=== PATIENT | male | born 1995 | race Caucasian/White ===

== ENCOUNTER 2017-10-22 11:52 | Emergency (ER) | payer BC ==
[2017-10-22 16:08] VITALS: BP 134/84
--- NOTE | 2017-10-22 16:28 | UC ---
FLU HPI - HPI Summary HPI Summary: started yesterday with fevers, headache, sorethroat, cough and body aches. - History of Current Complaint Chief Complaint: UCGeneralIllness Stated Complaint: ST/COUGH Hx Obtained From: Patient Onset/Duration: Sudden Onset, Lasting Days - 2, Still Present Severity Currently: Moderate Severity Initially: Moderate Pain Intensity: 1 Associated Signs & Symptoms: Positive: Fever, Myalgia, Cough, Sore Throat, Headache - left temporal - Risk Factors Influenza Risk Factors: Negative - Allergy/Home Medications Allergies/Adverse Reactions: Allergies Allergy/AdvReac Type Severity Reaction Status Date / Time ceftriaxone Allergy Intermediate Rash Verified 10/22/17 16:09 Home Medications: Home Medications Pantoprazole TAB (NF) [Protonix TAB (NF)] 40 mg PO DAILY 10/22/17 [History Confirmed 10/22/17] PMH/Surg Hx/FS Hx/Imm Hx Previously Healthy: Yes Other GI/ History: Celiac disease - Surgical History Surgical History: Yes Surgery Procedure, Year, and Place: tonsillectomy. endo. testicular torsion - Family History Known Family History: Positive: Cardiac Disease, Hypertension, Diabetes - Social History Occupation: Employed Full-time Lives: With Family Alcohol Use: Rare Substance Use Type: None Smoking Status (MU): Never Smoked Tobacco Have You Smoked in the Last Year: No Review of Systems Constitutional: Fever, Chills ENT: Sore Throat Respiratory: Cough Musculoskeletal: Myalgia Is Patient Immunocompromised?: No All Other Systems Reviewed And Are Negative: Yes Physical Exam Triage Information Reviewed: Yes Appearance: No Pain Distress, Well-Nourished, Ill-Appearing Vital Signs: Initial Vital Signs Temp 100.4 F 10/22/17 16:01 Pulse 94 10/22/17 16:01 Resp 16 10/22/17 16:01 BP 134/84 10/22/17 16:01 Pulse Ox 97 10/22/17 16:01 Vital Signs Reviewed: Yes Eyes: Positive: Conjunctiva Inflamed ENT: Positive: Pharyngeal erythema, TMs normal - obscurred by wax Neck exam: Normal Respiratory: Positive: Wheezing - Expiratory wheeze with coughing Cardiovascular Exam: Normal Musculoskeletal Exam: Normal Neurological Exam: Normal Psychological Exam: Normal Skin Exam: Normal Flu Course/Dx - Differential Dx/Diagnosis Differential Diagnosis/HQI/PQRI: Influenza, Pneumonia, Upper Respiratory Infection Provider Diagnoses: Influenza A. Acute bronchospasm Discharge - Discharge Plan Condition: Stable Disposition: HOME Prescriptions: Oseltamivir CAP* [Tamiflu CAP*] 75 mg PO BID #10 cap predniSONE TAB* [Deltasone TAB*] 20 mg PO DAILY #18 tab Patient Education Materials: Influenza (ED), Oseltamivir (By mouth), Bronchospasm (ED), Prednisone (By mouth) Forms: *Work Release Referrals: Panfilo Newby MD [Primary Care Provider] -
== END 2017-10-22 17:15 | disposition home or self-care (01) ==
LOC: UCCORT 11:52
DX: J09.X2 Influenza due to identified novel influenza A virus with other respiratory manifestations (principal); J98.01 Acute bronchospasm
CPT/HCPCS: 87502; 99202; G0463

== ENCOUNTER 2019-06-08 11:26 | Emergency (ER) | payer BC ==
--- OUTSIDE RECORDS SUMMARY | 2019-06-08 12:21 | XMS REPORT | Continuity of Care Document ---
:1995 External Reference #:[id number] Author Name German Lopes PA (transmitted by agent of provider Brielle Wyatt) Address [address], [address] [place] [address] Care Team Providers Name Role Phone Panfilo Newby MD - Internal Care Team Information Apartment Property Manager Medicine Problems Active Problems Provider Date Cellulitis of left lower limb Lydia Jackson M.D. Onset: 05/02/2019 Malaise and fatigue Lydia Jackson M.D. Onset: 05/02/2019 Fever Lydia Jackson M.D. Onset: 05/02/2019 [facility] Traumatic Scotty Love MD, FACS Onset: 03/12/2014 Fracture Of Other Bone Closed fracture of calcaneus Scotty Love MD, FACS Onset: 01/27/2014 Arthralgia of the ankle and/or foot Scotty Love MD, FACS Onset: 2013 Arthralgia of the lower leg Scotty Love MD, FACS Onset: 01/23/2014 Social History Type Date Description Comments Sex Unknown Tobacco Use Start: Unknown Never Smoked Cigarettes ETOH Use Never used alcohol Tobacco Use Start: Unknown Patient denies history of smoking Smoking Status Reviewed: 05/27/19 Patient denies history of smoking Allergies, Adverse Reactions, Alerts Active Allergies Reaction Severity Comments Date Ceftin 04/20/2005 Ceftin 04/21/2005 Inactive Allergies Cefuroxime Sodium 12/09/2008 Milk 12/09/2008 Lactase Enzyme 12/09/2008 Gluten 01/23/2014 Medications Active Medications SIG Qnty Indications Ordering Provider Date Acidophilus take 1 cap by 60caps L03.116 Lydia Jackson M.D. 05/15/2019 High-Potency mouth twice a Capsules day for 30 days Pantoprazole Sodium Unknown Tablets DR Immunizations Description No Information Available Vital Signs Date Vital Result Comment 05/27/2019 2:14pm BP Systolic Sitting Left Arm 116 mmHg BP Diastolic Sitting Left Arm 58 mmHg Heart Rate 65 /min Respiratory Rate 16 /min Height 76 inches 6'4" Weight 201.00 lb BMI (Body Mass Index) 24.5 kg/m2 BSA (Body Surface Area) 2.22 m2 [place] body weight in kilograms 92 kg O2 % BldC Oximetry 95 % Ra 05/02/2019 1:25pm BP Systolic Sitting Left Arm 120 mmHg BP Diastolic Sitting Left Arm 69 mmHg Body Temperature 95.9 F Heart Rate 52 /min Height 76 inches 6'4" Weight 191.00 lb BMI (Body Mass Index) 23.2 kg/m2 BSA (Body Surface Area) 2.17 m2 [place] body weight in kilograms 92 kg Results Test Date Facility Test Result H/L Range Note Laboratory test [facility] Vancomycin,Trough 10.9 ug/mL Low 15.0- 20.0 1 finding [address] [place], [place] [address] [phone] [facility] Amphetamines Negative Abuse-Urine [address] (Urine) Screen 7 [place], [place] [address] [phone] Barbiturates (Urine) Negative Benzodiazepines (Urine) Negative Cannabinoids (Urine) Negative Cocaine Metabolite (Urine) Negative Methadone (Urine) Negative Opiates (Urine) Negative Urine Cutoffs * 2 CBC W/Automated 03/29/2019 [facility] White Blood 8.9 K/uL Normal 3.4-10.[address] Count [place], [place] [address] [phone] Red Blood Count 5.19 M/uL Normal 4.20-5.80 Hemoglobin 15.3 gm/dL Normal 12.8-17.0 Hematocrit 46.5 % Normal 38.0-48.0 Mean Cell Volume 89.6 fl Normal 80.0-96.0 Mean Corpuscular HGB 29.5 pg Normal 27.0-33.0 Mean Corpuscular HGB Conc 32.9 g/dL Normal 31.7-36.0 Platelet Count 172 K/uL Normal 155-360 Red Cell Distri Width SD 41.5 fl Normal 36-51 Red Cell Distri Width %CV 12.6 % Normal 11.6-15.8 Mean Platelet Volume 13.3 fl High 6.6-10.6 Neut% 70.4 % Normal 33.0-73.0 Lymph % 14.4 % Low 20.0-42.0 [place]ickson % 14.3 % High 0.0-10.0 Eo% 0.3 % Normal 0.0-6.6 Bas% 0.3 % Normal 0.0-1.1 Immature Grans 0.3 % Normal 0.0-5.0 NRBC % 0.0 /100WBC < 10/ 100 WBC Neut# 6.23 K/uL Normal 1.8-7.0 Lymph # 1.28 K/uL Normal 1.0-4.0 [place]ickson # 1.27 K/uL High 0.0-0.8 Eos # 0.03 K/uL Normal 0.0-0.5 Baso # 0.03 K/uL Normal 0.0-0.1 Immature Grans Absolute 0.03 K/uL NRBC # 0.00 K/uL Comprehensive 03/29/2019 [facility] Glucose 90 mg/dL Normal 74-106 Metabolic Panel [address] [place] [address] [phone] BUN 10 mg/dL Normal 7-18 Creatinine 1.0 mg/dL Normal 0.6-1.3 Glom Filtration Rate, Estimate >60 mL/min >60 If >60 mL/min >60 3 BUN/Creat 10.0 ratio Sodium 142 mmol/L Normal 136-145 Potassium 3.7 mmol/L Normal 3.5-5.1 Chloride 105 mmol/L Normal 98-107 Carbon Dioxide 28 mmol/L Normal 21-32 Anion Gap 9 mEq/L Normal 8-16 Calcium 8.7 mg/dL Normal 8.5-10.1 Total Protein 7.0 g/dL Normal 6.4-8.2 Albumin 3.7 g/dL Normal 3.4-5.0 Globulin 3.3 g/dL Normal 1.9-4.3 Alb/Glob 1.1 ratio Bilirubin,Total 1.1 mg/dL High 0.2-1.0 Sgot/Ast 15 U/L Normal 15-37 SGPT/Alt 32 U/L Normal 12-78 Alkaline Phosphatase 58 U/L Normal 45-117 Laboratory 03/29/2019 [facility] C-Reactive 76.8 mg/L High <3.0 test finding [address] Protein,Quant [place], [place] [id number] [phone] HIV Screen 03/28/2019 [facility] HIV Screen 4th Non Non [address] Generation wRfx Reactive Reactive Reflex [place], [place] [address] [phone] Ehrlichia 03/28/2019 [facility] E.chaffeenis IgG Negative Neg:<1:[address] [place] [address] [phone] E.chaffeenis IgM Titer Negative Neg:<1:20 5 Hge IgG Titer Negative Neg:<1:64 6 Hge IgM Titer Negative Neg:<1:20 7 Babesia Microti 03/28/2019 [facility] Babesia microti,IgG <1:10 Neg:<1:10 8 Igg/M Abs,Ifa [address] [place], [place] [address] [phone] Babesia microti,IgM <1:10 Neg:<1:10 9 1 ACUTE FEBRILE ILLNESS 2 URINE SPECIMENS ARE SCREENED AT THE LISTED [facility] INITIAL TEST LEVEL Amphetamines 1000 ng/mL Barbiturates 200 ng/mL Benzodiazepines 200 ng/mL Cannabinoids 50 ng/mL Cocaine Metabolite 300 ng/mL Methadone 300 ng/mL Opiates 300 ng/mL Any PRESUMPTIVE POSITIVE findings are UNCONFIRMED. Confirmatory testing is suggested if findings are unexpected. Please contact laboratory if confirmatory testing is desired. SPECIMENS ARE HELD FOR 72 HOURS. 3 Note: Persistent reduction for 3 months or more in an eGFR <60 mL/min/1.73 m2 defines CKD. Patients with eGFR values >/=60 mL/min/1.73 m2 may also have CKD if evidence of persistent proteinuria is present. The original MDRD equation for estimated GFR is not valid for patients less than 18 years of age. Additional information may be found at www.kdoqi.org. 4 Performed at: RN - [facility] [address] [id number] Commonwealth Attorney: Rosie Issa MD, Phone: [phone] 5 IgG titers if 1:64 or greater indicate exposure or acute and convalescent samples showing a four-fold increase, and/or the presence of IgM indicate recent or current infection. 6 HGE IgG levels are detectable 7 to 10 days post infection and persist approximately one year. 7 Due to a reagent backorder, this test was performed using a different assay. The reference interval for this alternate assay is: Negative <1:64 Positive 1:64 or greater IgM levels usually rise 3 to 5 days post infection and fall to normal levels in approximately 30 to 60 days. Performed at: [address] [id number] Commonwealth Attorney: Rodney Farmer MD, Phone: [phone] 8 This test was developed and its performance characteristics determined by [facility]. It has not been cleared or approved by the U.S. Food and Drug Administration. The FDA has determined that such clearance or approval is not necessary. This test is used for clinical purposes. It should not be regarded as investigational or research. 9 Performed at: [address] [id number] Commonwealth Attorney: Rodney Farmer MD, Phone: [phone] Procedures Date Code Description Status 05/27/2019 47171 EKG-Tracing And Report Completed 04/11/2019 84572 Stress Test Interpre And Report Only Completed 04/11/2019 38655 Stress Test Physician Super Only Completed 03/29/2019 54106 Echocardiogram Complete Completed Medical Devices Description No Information Available Encounters Type Date Location Provider Dx Diagnosis Office Visit 05/02/2019 Physical Medicine Lydia Jackson, R50.9 Fever, unspecified 1:15p & Infectious M.D. Disease L03.116 Cellulitis of left lower limb R53.83 Other fatigue Assessments Date Code Description Provider 05/27/2019 R94.31 Electrocardiogram abnormal German Lopes PA 05/02/2019 R50.9 Fever, unspecified Lydia Jackson M.D. 05/02/2019 L03.116 Cellulitis of left lower limb Lydia Jackson M.D. 05/02/2019 R53.83 Other fatigue Lydia Jackson M.D. 04/11/2019 R94.31 Abnormal electrocardiogram [ECG] [EKG] Brielle Wyatt MD 03/29/2019 R94.31 Abnormal electrocardiogram [ECG] [EKG] Brielle Wyatt MD 03/29/2019 R50.9 Fever, unspecified Lydia Jackson M.D. 03/29/2019 R00.0 Tachycardia, unspecified Brielle Wyatt MD 03/29/2019 D72.829 Elevated white blood cell count, Lydia Jackson M.D. unspecified 03/29/2019 R50.9 Fever, unspecified Brielle Wyatt MD 03/29/2019 L03.116 Cellulitis of left lower limb Lydia Jackson M.D. 03/29/2019 M79.662 Pain in left lower leg Lydia Jackson M.D. 03/28/2019 R50.9 Fever, unspecified Lydia Jackson M.D. 03/28/2019 R22.42 Localized swelling, mass and lump, left Jennifer Jaffe NP lower limb 03/28/2019 D72.829 Elevated white blood cell count, Lydia Jackson M.D. unspecified 03/28/2019 R50.9 Fever, unspecified Jennifer Jaffe, LYNDA 03/28/2019 L03.116 Cellulitis of left lower limb Lydia Jackson M.D. 03/28/2019 R00.0 Tachycardia, unspecified Jennifer Jaffe NP 03/28/2019 M79.662 Pain in left lower leg Lydia Jackson M.D. 03/28/2019 L53.9 Erythematous condition, unspecified Jennifer Jaffe NP Plan of Treatment Future Appointment(s):05/26/2020 9:00 am - Brielle Wyatt MD at Cardiology [facility]ulnk9105/27/2019 - German Loeps, PAR94.31 Electrocardiogram abnormalNew Xrays:Cardiac MRI with and without, Ordered: 05/27/19Comments:Asymptomatic with no red flag / high risk symptoms that would be concerning for increased risk for SCD at current. Excellent exercise capacity and no ventricular ectopy was seen on treadmill ECG. His echo was normal. He is not willing to deconditioning and hold off running to see if his LVH ECG repolarization changes improve. I will see if his insurance would approve for CMR as this has recently beenrecognized as best testing for suspected HCM without other structural abnormalities yet detected anddifferentiation between HCM and athlete's heart. I do not believe that genetic testing is of high yield at current. It would be good to see if he has any structural abnormality on MRI to justify further risk stratification with genetic studies.AllFollow up:After studies are completed. Functional Status Functional Condition Comment Date Status Independent with all ADL's Active Mental Status Description No Information Available Referrals Description No Information Available
--- OUTSIDE RECORDS SUMMARY | 2019-06-08 12:21 | XMS REPORT | Continuity of Care Document ---
:1995 External Reference #:[id number] Author Name Lydia Jackson M.D. Address [address] [place] [address] Care Team Providers Name Role Phone Panfilo Newby MD - Internal Care Team Information Radiotelegraphist [phone] Medicine Problems Active Problems Provider Date Cellulitis of left lower limb Lyida Jackson M.D. Onset: 05/02/2019 Malaise and fatigue [...] denies history of smoking Smoking Status Reviewed: 05/02/19 Patient denies history of smoking Allergies, Adverse Reactions, Alerts Active Allergies Reaction Severity Comments Date Ceftin 04/20/2005 Ceftin 04/21/2005 Inactive Allergies Cefuroxime Sodium 12/09/2008 Milk 12/09/2008 Lactase Enzyme 12/09/2008 Gluten 01/23/2014 Medications Active Medications SIG Qnty Indications Ordering Provider Date Pantoprazole Sodium Unknown Tablets DR Immunizations Description No Information Available Vital Signs Date Vital Result Comment 05/02/2019 1:25pm BP Systolic Sitting Left Arm 120 mmHg BP Diastolic Sitting Left Arm 69 mmHg Body Temperature 95.9 F Heart Rate 52 /min Height 76 inches 6'4" Weight 191.00 lb BMI (Body Mass Index) 23.2 kg/m2 BSA (Body Surface Area) 2.17 m2 [place] body weight in kilograms 92 kg 01/23/2014 11:57am BP Systolic Sitting Left Arm 124 mmHg BP Diastolic Sitting Left Arm 68 mmHg Height 76 inches 6'4" Weight 183.00 lb BMI (Body Mass Index) 22.3 kg/m2 BSA (Body Surface Area) 2.13 m2 Height Percentile 97 % Weight Percentile 89th Results Test Date Facility Test Result H/L Range Note Laboratory test [facility] Vancomycin,Trough 10.9 ug/mL Low 15.0- 20.0 1 finding [address] [place] [address] [phone] [facility] Amphetamines Negative Abuse-Urine [address] (Urine) Screen 7 [place] [address] [phone] Barbiturates (Urine) Negative Benzodiazepines (Urine) Negative Cannabinoids (Urine) Negative Cocaine Metabolite (Urine) Negative Methadone (Urine) Negative Opiates (Urine) Negative Urine Cutoffs * 2 CBC W/Automated 03/29/2019 [facility] White Blood 8.9 K/uL Normal 3.4-10.[address] [place] [address] [phone] Red Blood Count 5.19 M/uL Normal 4.20-5.80 [...] 33.0-73.0 Lymph % 14.4 % Low 20.0-42.0 [place] % 14.3 % High 0.0-10.0 Eo% 0.3 % Normal 0.0-6.6 Bas% 0.3 % Normal 0.0-1.1 Immature Grans 0.3 % Normal 0.0-5.0 NRBC % 0.0 /100WBC < 10/ 100 WBC Neut# 6.23 K/uL Normal 1.8-7.0 Lymph # 1.28 K/uL Normal 1.0-4.0 [place] # 1.27 K/uL High 0.0-0.8 Eos # 0.03 K/uL Normal 0.0-0.5 Baso # 0.03 K/uL Normal 0.0-0.1 Immature Grans Absolute 0.03 K/uL NRBC # 0.00 K/uL Comprehensive 03/29/2019 [facility] Glucose 90 mg/dL Normal 74-106 Metabolic Panel [address] [place] [address] [phone] BUN 10 mg/dL Normal 7-18 Creatinine 1.0 [...] Phosphatase 58 U/L Normal 45-117 Laboratory 03/29/2019 [facility] C-Reactive 76.8 mg/L High <3.0 test finding [address] Protein,[place] [address] [phone] HIV Screen 03/28/2019 [facility] HIV Screen 4th Non Non 4 4TH Gen [address] Generation wRfx Reactive Reactive Reflex [place], [place] [address] [phone] Ehrlichia 03/28/2019 [facility] E.chaffeenis IgG Negative Neg:<1:[address] Titer Panel [place], [place] [address] [phone] E.chaffeenis IgM Titer Negative Neg:<1:20 5 Hge IgG Titer Negative Neg:<1:64 6 Hge IgM Titer Negative Neg:<1:20 7 Babesia Microti 03/28/2019 [facility] Babesia microti,IgG <1:10 Neg:<1:10 8 Igg/M Abs,Ifa [address] [place] [address] [phone] Babesia microti,IgM <1:10 Neg:<1:10 9 1 ACUTE [...] [email or web address]. 4 Performed at: RN - [facility] [address] [id number] Cost Estimating Manager: Rosie Issa MD, Phone: [phone] IgG titers if 1:64 or greater [...] approximately 30 to 60 days. Performed at: [address] [id number] Cost Estimating Manager: Rodney Farmer MD, Phone: [phone] 8 This test was developed and its performance characteristics determined by [facility]. It has not been cleared or approved by the U.S. Food and Drug Administration. The FDA has determined that such clearance or approval is not necessary. This test is used for clinical purposes. It should not be regarded as investigational or research. 9 Performed at: [address] [id number] Cost Estimating Manager: Rodney Farmer MD, Phone: [phone] Procedures Date Code Description Status 04/11/2019 07102 Stress Test Interpre And Report Only Completed 04/11/2019 44440 Stress Test Physician Super Only Completed 03/29/2019 27108 Echocardiogram Complete Completed Medical Devices Description No Information Available Encounters Type Date Location Provider Dx Diagnosis Office Visit 05/02/2019 Physical Medicine Lydia Jackson, R50.9 Fever, unspecified 1:15p & Infectious M.D. Disease L03.116 Cellulitis of left lower limb R53.83 Other fatigue Assessments Date Code Description Provider 05/02/2019 R50.9 Fever, unspecified Lydia Jackson M.D. 05/02/2019 L03.116 Cellulitis of left lower limb Lydia Jackson M.D. 05/02/2019 R53.83 Other fatigue Lydia Jackson M.D. 04/11/2019 R94.31 Abnormal electrocardiogram [ECG] [EKG] Brielle Wyatt MD 03/29/2019 R94.31 Abnormal electrocardiogram [ECG] [EKG] Brielle Wyatt MD 03/29/2019 R50.9 Fever, unspecified Lydia Jackson M.D. 03/29/2019 R00.0 Tachycardia, unspecified Brielle Wyatt MD 03/29/2019 D72.829 Elevated white blood cell count, unspecified Lydia Jackson M.D. 03/29/2019 R50.9 Fever, unspecified Brielle Wyatt MD 03/29/2019 L03.116 Cellulitis of left lower limb Lydia Jackson M.D. 03/29/2019 M79.662 Pain in left lower leg Lydia Jackson M.D. 03/28/2019 R50.9 Fever, unspecified Lydia Jackson M.D. 03/28/2019 R22.42 Localized swelling, mass and lump, left lower Jennifer Jaffe NP limb 03/28/2019 D72.829 Elevated white blood cell count, unspecified Lydia Jackson M.D. 03/28/2019 R50.9 Fever, unspecified Jennifer Jaffe NP 03/28/2019 L03.116 Cellulitis of left lower limb Lydia Jackson M.D. 03/28/2019 R00.0 Tachycardia, unspecified Jennifer Jaffe NP 03/28/2019 M79.662 Pain in left lower leg Lydia Jackson M.D. 03/28/2019 L53.9 Erythematous condition, unspecified Jennifer Jaffe NP Plan of Treatment Future Appointment(s):05/27/2019 2:20 pm - German Lopes PA at Cardiology X[facility]id2305/02/2019 - Lydia Jackson M.D.R50.9 Fever, unspecifiedFollow up :prnL03.116 Cellulitis of left lower limbR53.83 Other fatigue Functional Status Functional Condition Comment Date Status Independent with all ADL's Active Mental Status Description No Information Available Referrals Description No Information Available
[2019-06-08 12:28] VITALS: BP 138/72
--- NOTE | 2019-06-08 13:21 | UC ---
Hand/Wrist HPI - HPI Summary HPI Summary: 23 year old male presents with a complaint of acute onset left wrist and right index finger pain, erythema and warmth over the past 3 days. He is concerned for Lyme Disease as he was hospitalized at [facility] for 4 days in March with a high fever and suspected Lyme Disease even though his titers at that time were negative. He did not complete his 28 day course of Doxycycline as was prescribed (tool about 20 days) as he forgot. He denies any specific injury to his left wrist or right index finger, no repetative injury other than computer use. - History Of Current Complaint Chief Complaint: UCUpperExtremity Stated Complaint: LEFT WRIST/RIGHT MIDDLE FINGER Time Seen by Provider: 06/08/19 13:20 Hx Obtained From: Patient Onset/Duration: Sudden Onset, Lasting Days - 3 days Pain Intensity: 3 Aggravating Factor(s): Movement, Flexion, Extension - Allergies/Home Medications Allergies/Adverse Reactions: Allergies Allergy/AdvReac Type Severity Reaction Status Date / Time ceftriaxone Allergy Intermediate Rash Verified 06/08/19 12:28 Home Medications: Home Medications Acetaminophen [Acetaminophen Extra Strength] 1,000 mg PO DAILY 06/08/19 [ History Confirmed 06/08/19] PMH/Surg Hx/FS Hx/Imm Hx Previously Healthy: Yes - hospitalized in March for a high fever and treated for Lyme Disease - Surgical History Surgical History: Yes Surgery Procedure, Year, and Place: tonsillectomy. endo. testicular torsion - Family History Known Family History: Positive: Cardiac Disease, Hypertension, Diabetes - Social History Alcohol Use: Rare Substance Use Type: None Smoking Status (MU): Never Smoked Tobacco Have You Smoked in the Last Year: No Review of Systems All Other Systems Reviewed And Are Negative: Yes Constitutional: Negative: Fever, Chills Skin: Positive: Rash - redness of left wrist and right index finger. Eyes: Positive: Negative ENT: Negative: Sore Throat, Ear Ache, Nasal Discharge, Sinus Congestion, Sinus Pain/Tenderness Respiratory: Negative: Shortness Of Breath, Cough Cardiovascular: Negative: Palpitations, Chest Pain Gastrointestinal: Negative: Abdominal Pain, Vomiting, Diarrhea, Nausea Genitourinary: Positive: Negative Motor: Positive: Negative Neurovascular: Positive: Negative Musculoskeletal: Positive: Arthralgia - left wrist and right index finger Neurological: Negative: Headache, Weakness, Paresthesia, Numbness Psychological: Positive: Negative Is Patient Immunocompromised?: No Physical Exam Triage Information Reviewed: Yes Appearance: Well-Appearing, No Pain Distress, Well-Nourished Vital Signs: Initial Vital Signs Temp 99.8 F 06/08/19 12:21 Pulse 54 06/08/19 12:21 Resp 16 06/08/19 12:21 BP 138/72 06/08/19 12:21 Pulse Ox 98 06/08/19 12:21 Vital Signs Reviewed: Yes Eyes: Positive: Conjunctiva Clear ENT: Positive: Normal ENT inspection Neck: Positive: Supple, Nontender, No Lymphadenopathy Respiratory: Positive: Chest non-tender, Lungs clear, Normal breath sounds. Negative: Crackles, Rhonchi, Wheezing Cardiovascular: Positive: RRR, No Murmur Abdomen Description: Positive: Nontender, Soft Musculoskeletal: Positive: Strength Intact, ROM Limited @ - right PIP joint and left wrist. Mild erythema and warmth of those joints also noted. Neurological: Positive: Alert Psychological Exam: Normal Skin: Positive: Rashes - as noted on musculoskeletal exam. Hand/Wrist Course/Dx - Course Course Of Treatment: 23 year old male with acute joint swelling after being diagnosed with suspected Lyme Disease (negative titer at the time). He did not complete the full course of Doxycycline prescribed. I have drawn a Lyme Titer and prescribed another 28 day course of Doxy. If he tests positive, I recommended he complete the full 28 day course and follow-up with his PCP to be referred to ID. If his Lyme titer is again negative, I recommended he stop the Doxycycline and see his PCP for further evaluation, possible Rheumatology consult. If his sx worsen on the medication, instructed to go to the ED. - Differential Dx/Diagnosis Differential Diagnosis/HQI/PQRI: Carpal Tunnel Syndrome, Other - Lyme Disease Provider Diagnosis: Tendonosis Discharge ED - Sign-Out/Discharge Documenting (check all that apply): Patient Departure All imaging exams completed and their final reports reviewed: No Studies - Discharge Plan Condition: Stable Disposition: HOME Prescriptions: DOXYcycline CAP(*) [DOXYcycline 100MG CAP(*)] 100 mg PO BID 28 Days #56 cap Patient Education Materials: Tenosynovitis (ED) Referrals: Panfilo Newby MD [Primary Care Provider] - Additional Instructions: A Lyme titer has been drawn today, if you are not contacted with results within the next week, please call for results. Take ibuprofen 600mg every 8 hours as needed for pain. Follow-up with your Primary Care Physician if your symptoms persist or worsen. If a fever develops, seek care in the Emergency Department. - Billing Disposition and Condition Condition: STABLE Disposition: Home
== END 2019-06-08 13:51 | disposition home or self-care (01) ==
LOC: UCCORT 11:26
DX: M77.9 Enthesopathy, unspecified (principal); Z88.1 Allergy status to other antibiotic agents
CPT/HCPCS: 36415; 86618; 99212; G0463